=== PATIENT | female | born 1945 | race Caucasian/White ===

== ENCOUNTER 2016-11-01 06:03 | Emergency (ER) | payer MEDICARE, OTHER ==
[~2016-11-01 06:03] MED LIST: CARBAMAZEPINE200 MG PO; CARDIZEM CD240 MG PO; COLCHICINE 0.60.6 MG PO; DULERA 200 MCG8.8 GM INH; GLUCERNA237 ML PO; INVOKANA100 MG PO; LASIX20 MG PO; LEVAQUIN500 MG PO; MIRALAX17 GM PO; MULTIVITAMINS1 EAC1 PO; NORCO 10-325 T1 EACH PO; NORVASC 5 MG TAB5 MG PO; PANTOPRAZOLE SO40 MG PO; PHENERGAN 12.12.5 M1 PO; PREDNISONE 5 MG5 MG PO; REQUIP1 MG PO; SEROQUEL200 MG PO; SERTRALINE HCL100 MG PO; VENTOLIN HFA 66.7 GM INH; ZOFRAN8 MG PO
[2016-11-01 07:53] LABS: HEMOGLOBIN 9.6 gm/dl (12.3-15.3); RED BLOOD COUNT 3.12 M/UL (4.00-5.10)
[2016-11-04 15:21] LABS: WHITE BLOOD COUNT 16.2 K/UL (4.5-11.0)
== END 2016-11-01 11:00 | disposition home or self-care (01) ==
LOC: ER1 06:03
PROVIDERS: Physician Assistant
DX: R04.0 Epistaxis (principal); G89.29 Other chronic pain; D64.9 Anemia, unspecified; D69.6 Thrombocytopenia, unspecified; D72.829 Elevated white blood cell count, unspecified; I10 Essential (primary) hypertension; E10.9 Type 1 diabetes mellitus without complications; J44.9 Chronic obstructive pulmonary disease, unspecified
CPT/HCPCS: 36415; 71010; 73030; 80053; 82550; 82553; 83874; 84484; 85025; 85610; 85730; 93005; 96360; 96361; 99283

== ENCOUNTER → 2017-01-15 | Outpatient (CLI) | payer MEDICARE, OTHER ==
[~2017-01-15] VITALS: Ht 149.9 cm; Wt 51.3 kg
[~2017-01-15] MED LIST changes: +ATIVAN0.5 MG PO; +COLACE 100MG C100 MG PO; +CONSTULOSE10 GM/15 M PO; +DILTIAZEM 24HR120 M1 PO; +HYDROCODON-ACE1 EAC5 PO; +MORPHINE SULFAT15 M2 PO; +MORPHINE SULFAT30 M5 PO; +PROTONIX 40 MG40 M1 PO; +ROXANOL SOLN20 MG/M1 PO; +SEROQUEL TAB 2525 MG PO; +TEGRETOL200 MG PO; +ZOFRAN 8 MG TAB8 MG PO
== END ==
LOC: OPSV 08:30
DX: C93.10 Chronic myelomonocytic leukemia not having achieved remission (principal); D64.9 Anemia, unspecified
CPT/HCPCS: 36430; J1642; J7050; P9016; Q0163

== ENCOUNTER 2017-05-04 01:50 | Inpatient (IN) | payer MEDICARE ==
[~2017-05-04] VITALS: Ht 157.5 cm; Wt 49.4 kg
[~2017-05-04 01:50] MED LIST changes: -ATIVAN0.5 MG PO; -COLACE 100MG C100 MG PO; -CONSTULOSE10 GM/15 M PO; -DILTIAZEM 24HR120 M1 PO; -HYDROCODON-ACE1 EAC5 PO; -MORPHINE SULFAT15 M2 PO; -MORPHINE SULFAT30 M5 PO; -PROTONIX 40 MG40 M1 PO; -ROXANOL SOLN20 MG/M1 PO; -SEROQUEL TAB 2525 MG PO; -TEGRETOL200 MG PO; -ZOFRAN 8 MG TAB8 MG PO
[2017-05-04 02:49] LABS: RED BLOOD COUNT 1.57 M/UL (4.00-5.10)
[2017-05-04 02:56] LABS: HEMOGLOBIN 5.3 gm/dl (12.3-15.3)
[2017-05-04] MEDS ORDERED: REQUIP1 MG PO (12:27)
[2017-05-04] MEDS ORDERED: INVOKANA100 MG PO (12:28)
[2017-05-04] MEDS ORDERED: DILTIAZEM 24HR120 M1 PO (12:28)
[2017-05-04] MEDS ORDERED: PROTONIX 40 MG40 M1 PO (12:29)
[2017-05-04] MEDS ORDERED: SERTRALINE HCL100 MG PO (12:29)
[2017-05-04] MEDS ORDERED: SEROQUEL TAB 2525 MG PO (12:30)
[2017-05-04] MEDS ORDERED: MORPHINE SULFAT30 M5 PO (12:31)
[2017-05-04] MEDS ORDERED: MORPHINE SULFAT15 M2 PO (12:32)
[2017-05-04] MEDS ORDERED: HYDROCODON-ACE1 EAC5 PO (12:34)
[2017-05-04] MEDS ORDERED: ZOFRAN 8 MG TAB8 MG PO (12:36)
[2017-05-04] MEDS ORDERED: CONSTULOSE10 GM/15 M PO (12:39)
[2017-05-04 19:52] LABS: HEMOGLOBIN 7.5 gm/dl (12.3-15.3)
[2017-05-04 22:05] LABS: HEMOGLOBIN 7.2 gm/dl (12.3-15.3)
[2017-05-04 22:11] LABS: RED BLOOD COUNT 2.29 M/UL (4.00-5.10); WHITE BLOOD COUNT 134.6 K/UL (4.5-11.0)
[2017-05-05 04:35] LABS: RED BLOOD COUNT 2.17 M/UL (4.00-5.10)
[2017-05-05 04:38] LABS: WHITE BLOOD COUNT 136.6 K/UL (4.5-11.0)
[2017-05-05 04:39] LABS: HEMOGLOBIN 6.7 gm/dl (12.3-15.3)
[2017-05-05 11:32] LABS: HEMOGLOBIN 8.4 gm/dl (12.3-15.3)
[2017-05-05 19:34] LABS: HEMOGLOBIN 8.3 gm/dl (12.3-15.3)
[2017-05-06 03:19] LABS: HEMOGLOBIN 8.1 gm/dl (12.3-15.3)
[2017-05-06 03:21] LABS: RED BLOOD COUNT 2.64 M/UL (4.00-5.10); WHITE BLOOD COUNT 94.3 K/UL (4.5-11.0)
[2017-05-06 11:21] LABS: HEMOGLOBIN 8.3 gm/dl (12.3-15.3)
[2017-05-06 18:56] LABS: HEMOGLOBIN 8.1 gm/dl (12.3-15.3)
[2017-05-07 03:14] LABS: HEMOGLOBIN 8.4 gm/dl (12.3-15.3)
[2017-05-07 06:57] LABS: RED BLOOD COUNT 2.69 M/UL (4.00-5.10)
[2017-05-07 06:59] LABS: WHITE BLOOD COUNT 106.6 K/UL (4.5-11.0)
[2017-05-07 11:35] LABS: HEMOGLOBIN 8.5 gm/dl (12.3-15.3)
[2017-05-07 19:20] LABS: HEMOGLOBIN 7.7 gm/dl (12.3-15.3)
[2017-05-08 03:08] LABS: HEMOGLOBIN 7.4 gm/dl (12.3-15.3)
[2017-05-08 11:18] LABS: HEMOGLOBIN 7.2 gm/dl (12.3-15.3)
[2017-05-08] MEDS ORDERED: TEGRETOL200 MG PO (12:37)
[2017-05-08] MEDS ORDERED: COLACE 100MG C100 MG PO (15:04)
[2017-05-08] MEDS ORDERED: ATIVAN0.5 MG PO (15:15)
[2017-05-08] MEDS ORDERED: ROXANOL SOLN20 MG/M1 PO (15:18)
== END 2017-05-08 18:25 | disposition home or self-care (01) | DRG 841 ==
LOC: ER1 01:50 → M/S 03:57 → ZEROF 03:57 → M/S 04:02
PROVIDERS: Emergency Medicine; Internal Medicine; Internal Medicine Hematology & Oncology; ADMIT Internal Medicine
PROC: 30233N1 Transfusion of Nonautologous Red Blood Cells into Peripheral Vein, Percutaneous Approach (ICD-10-PCS; principal; 2017-05-04)
PROC: 30233R1 Transfusion of Nonautologous Platelets into Peripheral Vein, Percutaneous Approach (ICD-10-PCS; 2017-05-05)
DX: C93.10 Chronic myelomonocytic leukemia not having achieved remission (principal); I13.0 Hypertensive heart and chronic kidney disease with heart failure and stage 1 through stage 4 chronic kidney disease, or unspecified chronic kidney disease; N18.4 Chronic kidney disease, stage 4 (severe); I50.30 Unspecified diastolic (congestive) heart failure; N17.9 Acute kidney failure, unspecified; D69.6 Thrombocytopenia, unspecified; D63.0 Anemia in neoplastic disease; E87.6 Hypokalemia; I51.7 Cardiomegaly; I27.20 Pulmonary hypertension, unspecified; G50.0 Trigeminal neuralgia; Z66 Do not resuscitate; Z51.5 Encounter for palliative care; E11.22 Type 2 diabetes mellitus with diabetic chronic kidney disease; G89.4 Chronic pain syndrome; Z90.710 Acquired absence of both cervix and uterus; L89.152 Pressure ulcer of sacral region, stage 2
CPT/HCPCS: ECHO; 36415; 36600; 71010; 71020; 80048; 80053; 81001; 82272; 82550; 82553; 82607; 82728; 82746; 82803; 82962; 83605; 83735; 83874; 83880; 84484; 85007; 85014; 85018; 85027; 85610; 85730; 86850; 86900; 86901; 86920; 87040; 87081; 87880; 93005; 93306; 94640; 94664; 99285; C9113; J1940; J7040; J7050; P9037; P9040; Q0162